=== PATIENT | male | born 1975 | race Caucasian/White ===

== ENCOUNTER 2018-07-12 21:37 | Emergency (ER) | payer OTHER ==
--- NOTE | 2018-07-12 23:20 | RAD ---
LEFT KNEE FOUR VIEWS: 07/12/18 No fracture or large joint effusion was seen. The joint space appears normal. IMPRESSION: No acute findings. POS: HOME
[2018-07-12] MEDS ORDERED: Acetaminophen 500 MG TAB ONE (23:42)
--- NOTE | 2018-07-13 16:32 | CT ---
PRELIMINARY REPORT/[facility]/EMERGENTY AFTER-HOURS PROCEDURE CT Cervical Spine Without Contrast EXAM DATE/TIME: 07/12/2018 10:21 PM CLINICAL HISTORY: 42 years old, male; Injury or trauma; Fall; Initial encounter; Blunt trauma; Injury details: Fall fro m standing position TECHNIQUE: Axial computed tomography images of the cervical spine without intravenous contrast. All CT scans at this facility use at least one of these dose optimization techniques: automated exposure control; mA and/or kV adjustment per patient size (includes targeted exams where dose is matched to clinical willie cation); or iterative reconstruction. COMPARISON: No relevant prior studies available. FINDINGS: Vertebrae: No C-spine fracture. Discs/Spinal canal/Neural foramina: No spinal stenosis. No neural foraminal narrowing. Soft tissues: Unremarkable. Lungs: Lung apices are normal. Other findings: Chronic fracture deformity of the lateral wall of the right maxillary sinus. IMPRESSION: No C-spine fracture. Thank you for allowing us to participate in the care of your patient. Dictated and Authenticated by: Jamin Marcum MD 07/12/2018 10:50 PM Central Time ([place] & [place]) CT OF THE CERVICAL SPINE 07/12/[address] of the cervical spine was done following trauma. Axial slices were acquired followed by cor onal and sagittal reconstructions. There is loss of the normal cervical lordosis which could be due to muscle spasm. No fracture, disloc ation, or acute bony change was seen. The soft tissues are normal in thickness and the C1 to dens dis tance is normal. There is slight disc space narrowing at C5-C6. Some minor osteophytes cause mild jeffrey ateral foraminal narrowing at this level. There is slight left foraminal narrowing at the C6-C7 level . IMPRESSION: Loss of normal cervical lordosis. Otherwise, no acute bony findings. Report in agreement with preliminary reading by [place]. POS: HOME
== END 2018-07-12 23:50 | disposition home or self-care (01) ==
LOC: BURERS 21:37
DX: S83.512A Sprain of anterior cruciate ligament of left knee, initial encounter (principal); S83.412A Sprain of medial collateral ligament of left knee, initial encounter; F43.10 Post-traumatic stress disorder, unspecified; F17.210 Nicotine dependence, cigarettes, uncomplicated; Z79.899 Other long term (current) drug therapy; W18.30XA Fall on same level, unspecified, initial encounter
CPT/HCPCS: 72125